=== PATIENT | female | born 1985 | race Caucasian/White ===

== ENCOUNTER 2023-10-17 06:01 | Emergency (ER) | payer BC, SELFPAY ==
[2023-10-17 06:03] VITALS: BP 123/84
[2023-10-17 07:12] LABS: Urine Albumin Negative (Neg - Trace); Urine Bilirubin Negative (Negative); Urine Character Clear (Clear); Urine Color Straw; Urine Glucose Negative (Negative); Urine Ketone Negative (Negative); Urine Leukocyte Negative (Negative); Urine Nitrite Negative (Negative); Urine Occult Blood Negative (Negative); Urine Specific Gravity 1.005 (<1.030); Urine Urobilinogen Negative (Neg - 1+)
[2023-10-17 07:15] LABS: % Basophils 0.4 % (0-2); % Eosinophils 0.5 % (0-6); % Immature Granulocytes 0.5 % (0-0.5); % Lymphocytes 19.9 % (20.5-51.1); % Monocytes 8.3 % (1.7-9.3); % Neutrophils 70.4 % (42.2-75.2); Absolute Eosinophils 0.1 10^3/uL (0-0.7); Absolute Immature Granulocytes 0.1 10^3/uL (0-0.05); Absolute Monocytes 0.8 10^3/uL (0.1-0.6); Absolute Neutrophils 7.2 10^3/uL (1.4-6.5); Hematocrit 34.4 % (37.0-47.0); Hemoglobin 12.1 g/dL (12.0-16.0); Mean Corp Hgb Conc. 35.2 g/dL (33.0-37.0); Mean Corpuscular Hgb 32.5 pg (27.0-31.0); Mean Corpuscular Volume 92.5 fL (81.0-99.0); Mean Platelet Volume 9.4 fL (7.4-10.4); Nucleated Red Blood Cells % 0 %; Platelet Count 370 10^3/uL (130-400); Red Blood Cell Count 3.72 10^6/uL (4.20-5.40); Red Cell Dist. Width 11.9 % (11.5-14.5); White Blood Cell Count 10.2 10^3/uL (4.8-10.8)
[2023-10-17 07:33] LABS: ALT (SGPT) 33 U/L (0-35); AST (SGOT) 31 U/L (14-36); Albumin 3.7 g/dl (3.5-5.0); Alkaline Phosphatase 62 U/L (38-126); Blood Urea Nitrogen 9 mg/dl (7-17); Calcium 8.9 mg/dl (8.4-10.2); Carbon Dioxide 23 mmol/L (22-30); Chloride 105 mmol/L (98-107); Glucose 88 mg/dl (70-99); Potassium 4.4 mmol/L (3.5-5.1); Sodium 131 mmol/L (135-145); Total Bilirubin 0.5 mg/dl (0.2-1.3); Total Protein 6.3 g/dl (6.3-8.2); eGFR > 60.00
--- NOTE | 2023-10-17 07:37 | ED.GENMED ---
History of Present Illness
General
Chief Complaint: Female Dairy Nutrition Specialist/Gu symptoms
Source: patient and spouse
Exam Limitations: none
Time Seen by Provider: 10/17/23 06:35
Nursing documentation reviewed up to this point in time: agreed with
Travel History
Have you had any contact with someone who has COVID-19?: No
Do you have any symptoms of coronavirus? Fever > 100 degrees, chills, cough, shortness of breath, sore throat, loss of taste or smell, muscle aches, or headache?: No
History of Present Illness
History of Present Illness:
38-year-old female with a past medical history of asthma and hypothyroidism who is G1, P0 currently 15 weeks (follows with Dr. Day for VINYL INSTALLER) presents to the emergency department for evaluation of urinary retention and abdominal
discomfort. Patient says that she was in her normal state of health until this morning�she says that she last urinated around 10 PM last night and has been unable to urinate at all since. She says she tried multiple times this morning and despite
having the urge to urinate she was not able to pass urine. She says she has had increasing lower abdominal distention and discomfort. Came to the emergency room for assessment. She has not noticed any recent dysuria or change in frequency. She
has not had a fever or chills. She denies any vaginal bleeding or leakage of fluids. She denies any flank pain. Denies any recent issues with constipation says she has a normal bowel movement every day. She denies similar issues in the past.
Her only medications are Symbicort and levothyroxine no other medications recently.
Review of Systems
Review of Systems
All Other Systems: ROS reviewed and negative except as documented in HPI and ROS
Constitutional: Denies fever or chills
Respiratory: Denies trouble breathing
Cardiac: Denies chest pain
ABD/GI: Reports abdominal pain (Lower abdominal pressure/distention); Denies nausea, vomiting or constipated
: Reports difficulty voiding; Denies dysuria, frequency or flank pain
Musculoskeletal: Denies neck pain or back pain
Neurological: Denies headache, weakness or numbness
Phy Exam
Physical Exam
Physical Exam:
General: Awake, alert; appears slightly uncomfortable
Head: Normocephalic, atraumatic
Eyes: Conjunctiva normal, sclera anicteric
Throat: Airway intact, handling secretions
Neck: Trachea midline, supple without meningismus
Lungs: Clear to auscultation bilaterally, no wheezing, rales, rhonchi
Heart: Regular rate and rhythm, no murmurs, gallops, or rubs
Abd: Soft, slightly distended lower abdomen with a palpable bladder (bedside ultrasound shows greater than 1 L of retained urine), tender over the bladder
Neuro: Cranial nerves grossly intact, speech fluid
Skin: no rash
Extremities: No edema in extremities, equal pulses in all extremities
Scores
Heart Failure Risk
Heart Failure Risk Score: Not Applicable
Heart Score for Chest Pain Patients
STEMI patient?: Not applicable
Withdrawal Assessment of Alcohol
Withdrawal Assessment Completed?: Not applicable
Course
Orders/Labs/Results
Orders:
Orders
10/17/23 06:35
Straight cath- Treatment ONCE
10/17/23 06:38
Complete Blood Count/With Diff Urgent
Comprehensive Metabolic Panel Urgent
Urinalysis Reflex To Culture Urgent
Date Specimen was Collected: 10/17/23
Time Specimen was Collected: 06:37
10/17/23 06:48
US Limited Urgent
Reason For Exam: urinary rentention, abd pain
Abnormal Lab Results
10/17/23
06:38
RBC 3.72 L 10^6/uL
(4.20-5.40)
Hct 34.4 L %
(37.0-47.0)
MCH 32.5 H pg
(27.0-31.0)
Abs Immat Gran (auto) 0.1 H 10^3/uL
(0-0.05)
Absolute Neuts (auto) 7.2 H 10^3/uL
(1.4-6.5)
Absolute Monos (auto) 0.8 H 10^3/uL
(0.1-0.6)
Lymphocytes % 19.9 L %
(20.5-51.1)
Sodium 131 L mmol/L
(135-145)
Creatinine 0.5 L mg/dL
(0.6-1.0)
10/17/23 06:38
10/17/23 06:38
Vital Signs
Initial and Last Documented VS:
Initial Vital Signs
Temp Pulse Resp BP Pulse Ox
36.8 C 87 18 123/84 97
10/17/23 06:03 10/17/23 06:03 10/17/23 06:03 10/17/23 06:03 10/17/23 06:03
Last Documented Vital Signs
Temp Pulse Resp BP Pulse Ox
36.8 C 75 16 117/65 97
10/17/23 06:03 10/17/23 07:40 10/17/23 07:40 10/17/23 07:40 10/17/23 06:03
MDM/Problems Addressed
Differential Diagnosis Includes:
Acute urinary retention�could be secondary to /uterine compression of urinary outflow, constipation also consideration in , will need to rule out infection as well
MDM/Problems Addressed:
38-year-old female presents for evaluation of low abdominal discomfort and acute urinary retention. Says she has been unable to urinate since 10 PM. Vital signs normal. Exam as above. Greater than 1 L of retained urine on bedside ultrasound.
Plan to check basic labs, will catheterize to decompress bladder. Discussed with [employer] INSTALLER recommended ultrasound as well. Reassess after the above.
After straight catheterization patient had output of 1.3 L of urine. Awaiting results of labs and imaging.
CBC shows no leukocytosis or other clinically significant abnormalities. CMP within acceptable range. Urinalysis negative for infection. Awaiting ultrasound.
Ultrasound reassuring. Per [facility] INSTALLER okay for discharge recommended urology follow-up. Discussed with urology�recommended education on how to self catheterize should she have urinary retention in the future. Suspect related no other clear
risk factors for retention. Recommended outpatient follow-up with urogynecology next week. Educated patient on self-catheterization. Patient feels very comfortable with this plan. All questions answered.
*Radiology
Radiology exam reviewed: radiology read reviewed
*Pulse Oximetry
Patient hypoxic: no
*Critical Care Note
Total Time (30-74mins, 75-104mins- exclusive of procedures): Not Applicable
Data Reviewed
Source: patient and spouse
Patient Management
Discussion with other providers: Sales And Marketing Coordinator (Discussed with [facility]INYL INSTALLER)
ED Attending Note
-
Portions of this chart may have been created with voice recognition software.� Occasional wrong word or��sound alike� substitutions may have occurred due to the inherent limitations of voice recognition software.
Discharge Plan
Departure
Patient Disposition: Home (Routine Discharge)
Date of Disposition: 10/17/23
Time of Disposition: 09:41
Patient with high blood pressure during this ER visit?: No
Discharge Problem:
Acute urinary retention
Instructions: Urinary Retention (DC)
Prescriptions:
No Action
albuterol sulfate 90 mcg/actuation Hfa Aerosol Inhaler
2 puff INHALATION Q6H PRN (Reason: sob)
budesonide-formoterol [Symbicort] 160-4.5 mcg/actuation Hfa Aerosol Inhaler
1 puff INHALATION DAILY
levothyroxine 50 mcg Capsule
50 mcg PO DAILY
aspirin 81 mg Capsule
81 mg PO DAILY
1 tab PO DAILY
Referrals:
Dony Day MD [Active] - Call in 1-3 days for appt
Julian Lawson MD [Active] - Call in 1-3 days for appt (Uro/ice cutter)
Activity Restrictions/Additional Instructions:
Thank you for visiting the Emergency Department at [facility].
1. Please schedule a follow up appointment as directed. Call first thing tomorrow morning to make an appointment.
2. If indicated, please take your medications as instructed and indicated on discharge paperwork.
3. If any of your symptoms do not improve, or persist, or become more severe within 6-12 hours, please return to the emergency department for further care.
4. Please return to the emergency department if you develop a headache, neck pain/stiffness, fever greater than 100.4F, chest pain, shortness of breath, persistent nausea, vomiting, slurred speech, difficulty walking, numbness/tingling, weakness,
signs of infection or any other symptoms that are worrisome to you.
Please call [phone] if you have any questions.
Interventions
Interventions:
*Risk Screen - Suicide Last Done: 10/17/23 06:03
*General Assessment Last Done: 10/17/23 06:03
*Neglect/Abuse Screening Last Done: 10/17/23 06:03
ED- Fall Risk Assessment Last Done: 10/17/23 06:43
*ED COVID-19 Vaccine History Last Done: 10/17/23 06:08
ED-Female Genitourinary Assessment Last Done: 10/17/23 06:43
[2023-10-17 07:38] VITALS: BMI 25.4
[2023-10-17 07:40] VITALS: BP 117/65
== END 2023-10-17 09:56 | disposition home or self-care (01) ==
LOC: EMR 06:01
PROVIDERS: EMERGENCY PHYSICIAN Emergency Medicine
DX: O26.892 Other specified pregnancy related conditions, second trimester (principal); R33.9 Retention of urine, unspecified; Z3A.15 15 weeks gestation of pregnancy
CPT/HCPCS: 99284; 51701; 76815; 80053; 81003; 85025

== ENCOUNTER → 2023-12-23 14:28 | Outpatient (REF) | payer BC, SELFPAY | LOC: PNTC 14:28 | PROVIDERS: ATTENDING PHYSICIAN Obstetrics & Gynecology | DX: O69.5XX0 Labor and delivery complicated by vascular lesion of cord, not applicable or unspecified (principal) | CPT/HCPCS: 76816 ==

== ENCOUNTER → 2024-01-14 08:57 | Outpatient (REF) | payer BC, SELFPAY ==
--- NOTE | 2024-01-14 08:20 | PN.DIAED06 ---
Meal Plan - Gestational
- Breakfast
Gestational Diabetes Meal Plan Name: 1800 calories
Breakfast - Total Carbohydrate (grams): 30
Breakfast - Starch Carbohydrate: 1
Breakfast - Fruit Carbohydrate: 0
Breakfast - Milk Carbohydrate: 1
Breakfast - Nonstarchy Vegetables: Yes
Breakfast - Meat/Protein: 1
Breakfast - Fat: 2
- Morning Snack
Morning Snack - Total Carbohydrate (grams): 30
Morning Snack - Starch Carbohydrate: 1
Morning Snack - Fruit Carbohydrate: 0
Morning Snack - Milk Carbohydrate: 1
Morning Snack - Nonstarchy Vegetables: Yes
Morning Snack - Meat/Protein: 0.5
Morning Snack - Fat: 0
- Lunch
Lunch - Total Carbohydrate (grams): 45
Lunch - Starch Carbohydrate: 2
Lunch - Fruit Carbohydrate: 1
Lunch - Milk Carbohydrate: 0
Lunch - Nonstarchy Vegetables: Yes
Lunch - Meat/Protein: 2
Lunch - Fat: 1
- Afternoon Snack
Afternoon Snack - Total Carbohydrate (grams): 30
Afternoon Snack - Starch Carbohydrate: 1
Afternoon Snack - Fruit Carbohydrate: 1
Afternoon Snack - Milk Carbohydrate: 0
Afternoon Snack - Nonstarchy Vegetables: Yes
Afternoon Snack - Meat/Protein: 1
Afternoon Snack - Fat: 0
- Dinner
Dinner - Total Carbohydrate (grams): 45
Dinner - Starch Carbohydrate: 2
Dinner - Fruit Carbohydrate: 0
Dinner - Milk Carbohydrate: 1
Dinner - Nonstarchy Vegetables: Yes
Dinner - Meat/Protein: 2
Dinner - Fat: 2
- Evening Snack
Evening Snack - Total Carbohydrate (grams): 30
Evening Snack - Starch Carbohydrate: 1
Evening Snack - Fruit Carbohydrate: 0
Evening Snack - Milk Carbohydrate: 1
Evening Snack - Nonstarchy Vegetables: Yes
Evening Snack - Meat/Protein: 1
Evening Snack - Fat: 1
--- NOTE | 2024-01-14 11:08 | PN.DIAED02 ---
Referral
DSME Class Series Code: GDM
Referred For: Gestational Diabetes Self-Management Training, Management of Diabetes During , Medical Nutrition Therapy, Self-Blood Glucose Monitoring
PHI Release Authorization Form Signed: Yes
Patient Problems:
Current Active Problems
Problem Status Onset
Gestational diabetes mellitus in , unspecified control
Demographic
(1) Gestational diabetes mellitus in , unspecified control
Status: Acute
Qualifiers:
Gestational diabetes mellitus control: diet-controlled Trimester: second trimester Qualified Code(s): O24.410 - Gestational diabetes mellitus in , diet controlled
Code(s): O24.419 - Gestational diabetes mellitus in , unspecified control
Patient's primary language-: Italian
Care Plan
- Education Needs
Patient Education Needs: Monitoring, Nutritional management, Preconception care//gestational diabetes management
Recommended Diabetes Training Program based on assessment: Gestational Diabetes Management
- Plan of Care
Plan of Care:
Met with Ms. Melendez today, , currently at 27 weeks of gestation, here today for glucose monitor and medical nutrition therapy instructions.
Explained glucose metabolism in body and what occurs during to cause increase blood sugar. Discussed importance of keeping BS well controlled to avoid complications to the baby during and after (macrosomia, hypoglycemia). Explained
to Gabriela that she is at increased risk of developing T2DM in the future. Provided glucose monitor, reviewed instructions and proper testing technique, testing sites and testing pattern. She is aware to test FBS and 2 hr pp each meal. Expected
results for FBS <95 mg/dl and 2 hr pp <120 mg/dl. Result today of 87 mg/dl 2hrs after breakfast.
Gabriela reports that she is vegetarian and eats mostly moderate to high carb food groups like legumes, pasta and grains and lots of non-starchy vegetables, especially at dinner time. She states that she thinks her high blood sugars are a results of
her starch diet because she does not eat meat or fish.
Explained high carbohydrate diet and macronutrients and the effect each has on blood sugar. Provided with 1800 balaji GDM meal plan. She was educated on how to read a nutritional fact label and look at total CHO in relation to serving size. No fruit or
fruit juice until noontime. Provided with handout on snacks as well as 'Choose Your Foods' booklet. A Log sheet was provided for her to record results, she will send her 4 day meal log with all her FBG and 2hr Post prandial glucose numbers to this
office for review. In addition, she will send all her glucose readings to [facility]alia at [facility] every Saturday. She was encouraged to keep a regular activity schedule and will reach out should she require insulin.
== END ==
LOC: DES 08:57
PROVIDERS: ATTENDING PHYSICIAN Obstetrics & Gynecology
DX: O24.419 Gestational diabetes mellitus in pregnancy, unspecified control (principal)
CPT/HCPCS: 99078

== ENCOUNTER → 2024-01-20 13:26 | Outpatient (REF) | payer BC, SELFPAY | LOC: PNTC 13:26 | PROVIDERS: ATTENDING PHYSICIAN Obstetrics & Gynecology | DX: O24.419 Gestational diabetes mellitus in pregnancy, unspecified control (principal) | CPT/HCPCS: 76816 ==

== ENCOUNTER 2024-02-03 11:27 | Observation (INO) | payer BC, SELFPAY ==
[2024-02-03 11:44] VITALS: BMI 25.4
== END 2024-02-03 12:47 | disposition home or self-care (01) ==
LOC: LDRP 11:27
PROVIDERS: ADMITTING PHYSICIAN Obstetrics & Gynecology
DX: O36.8130 Decreased fetal movements, third trimester, not applicable or unspecified (principal); Z3A.30 30 weeks gestation of pregnancy
CPT/HCPCS: 59025; G0378

== ENCOUNTER → 2024-02-19 11:23 | Outpatient (REF) | payer BC, SELFPAY | LOC: PNTC 11:23 | PROVIDERS: ATTENDING PHYSICIAN Obstetrics & Gynecology | DX: O09.519 Supervision of elderly primigravida, unspecified trimester (principal); O09.529 Supervision of elderly multigravida, unspecified trimester; O09.819 Supervision of pregnancy resulting from assisted reproductive technology, unspecified trimester | CPT/HCPCS: 59025; 76815 ==

== ENCOUNTER → 2024-02-27 10:53 | Outpatient (REF) | payer BC, SELFPAY | LOC: PNTC 10:53 | PROVIDERS: ATTENDING PHYSICIAN Obstetrics & Gynecology | DX: O09.521 Supervision of elderly multigravida, first trimester (principal); O09.819 Supervision of pregnancy resulting from assisted reproductive technology, unspecified trimester; O24.419 Gestational diabetes mellitus in pregnancy, unspecified control | CPT/HCPCS: 59025; 76816 ==

== ENCOUNTER → 2024-03-05 11:25 | Outpatient (REF) | payer BC, SELFPAY | LOC: PNTC 11:25 | PROVIDERS: ATTENDING PHYSICIAN Obstetrics & Gynecology | DX: O09.819 Supervision of pregnancy resulting from assisted reproductive technology, unspecified trimester (principal); O69.5XX0 Labor and delivery complicated by vascular lesion of cord, not applicable or unspecified; O24.419 Gestational diabetes mellitus in pregnancy, unspecified control; O09.519 Supervision of elderly primigravida, unspecified trimester | CPT/HCPCS: 59025; 76815 ==

== ENCOUNTER → 2024-03-12 10:53 | Outpatient (REF) | payer BC, SELFPAY | LOC: PNTC 10:53 | PROVIDERS: ATTENDING PHYSICIAN Obstetrics & Gynecology | DX: O09.529 Supervision of elderly multigravida, unspecified trimester (principal); O09.819 Supervision of pregnancy resulting from assisted reproductive technology, unspecified trimester; O69.81X0 Labor and delivery complicated by cord around neck, without compression, not applicable or unspecified; O24.419 Gestational diabetes mellitus in pregnancy, unspecified control | CPT/HCPCS: 59025; 76816 ==

== ENCOUNTER → 2024-03-19 10:55 | Outpatient (REF) | payer BC, SELFPAY | LOC: PNTC 10:55 | PROVIDERS: ATTENDING PHYSICIAN Obstetrics & Gynecology | DX: O99.210 Obesity complicating pregnancy, unspecified trimester (principal); O09.819 Supervision of pregnancy resulting from assisted reproductive technology, unspecified trimester; O69.5XX0 Labor and delivery complicated by vascular lesion of cord, not applicable or unspecified; O24.419 Gestational diabetes mellitus in pregnancy, unspecified control | CPT/HCPCS: 59025; 76815 ==

== ENCOUNTER → 2024-03-25 10:56 | Outpatient (REF) | payer BC, SELFPAY | LOC: PNTC 10:56 | PROVIDERS: ATTENDING PHYSICIAN Obstetrics & Gynecology | DX: O99.210 Obesity complicating pregnancy, unspecified trimester (principal); O09.819 Supervision of pregnancy resulting from assisted reproductive technology, unspecified trimester; O69.5XX0 Labor and delivery complicated by vascular lesion of cord, not applicable or unspecified; O24.419 Gestational diabetes mellitus in pregnancy, unspecified control | CPT/HCPCS: 59025 ==

== ENCOUNTER → 2024-04-02 10:51 | Outpatient (REF) | payer BC, SELFPAY | LOC: PNTC 10:51 | PROVIDERS: ATTENDING PHYSICIAN Obstetrics & Gynecology | DX: O09.529 Supervision of elderly multigravida, unspecified trimester (principal); O09.819 Supervision of pregnancy resulting from assisted reproductive technology, unspecified trimester; O24.419 Gestational diabetes mellitus in pregnancy, unspecified control; O69.5XX2 Labor and delivery complicated by vascular lesion of cord, fetus 2 | CPT/HCPCS: 59025; 76815 ==

== ENCOUNTER 2024-04-03 08:53 | Inpatient (IN) | payer BC, SELFPAY ==
[2024-04-03 09:11] VITALS: BP 132/90; BMI 25.8
[2024-04-03 09:45] LABS: Hematocrit 34.6 % (37.0-47.0); Hemoglobin 12.4 g/dL (12.0-16.0); Mean Corp Hgb Conc. 35.8 g/dL (33.0-37.0); Mean Corpuscular Hgb 33.3 pg (27.0-31.0); Mean Platelet Volume 10.1 fL (7.4-10.4); Platelet Count 266 10^3/uL (130-400); Red Blood Cell Count 3.72 10^6/uL (4.20-5.40); Red Cell Dist. Width 12.4 % (11.5-14.5); White Blood Cell Count 9.1 10^3/uL (4.8-10.8)
[2024-04-03] MEDS: LR 1000 IV (11:00)
[2024-04-03] MEDS: TYLENOL 1000 MG PO (12:15)
[2024-04-03] MEDS: BICITRA 30 ML PO (12:15)
[2024-04-03] MEDS: ANCEF 10 IV (12:15)
[2024-04-03] MEDS: PITOCIN 30 UNITS/NSS 500 ML IV (13:30)
[2024-04-03] MEDS: TORADOL 15 MG IV ×2 (14:45→20:22)
[2024-04-03] MEDS: SYMBICORT 160/4.5 MCG INHALER 1 PUFF INH (19:22)
[2024-04-04] MEDS: TORADOL 15 MG IV ×2 (01:59→09:18)
[2024-04-04] MEDS: PRENATAL PLUS PO (02:19)
[2024-04-04 05:05] LABS: Mean Corp Hgb Conc. 36.1 g/dL (33.0-37.0); Mean Corpuscular Hgb 33.9 pg (27.0-31.0); Mean Corpuscular Volume 93.9 fL (81.0-99.0); Mean Platelet Volume 10.2 fL (7.4-10.4); Platelet Count 229 10^3/uL (130-400); Red Blood Cell Count 2.45 10^6/uL (4.20-5.40); Red Cell Dist. Width 12.3 % (11.5-14.5); White Blood Cell Count 10.2 10^3/uL (4.8-10.8)
[2024-04-04 06:26] LABS: Hemoglobin 8.3 g/dL (12.0-16.0)
[2024-04-04] MEDS: SYNTHROID 50 MCG PO (06:30)
--- NOTE | 2024-04-04 08:13 | W.PN.ANS.POP ---
Anesthesia Post Operative
- Anesthesia Post Op Note
Vital Signs Stable-See Nursing Note: Yes
Airway Patent: Yes
Adequate Pain Control: Yes
Change in Mental Status: No
Current Postoperative Nausea & Vomiting: No
Anesthesia Complications: No
General Anesthetic Recall: No
Unplanned Admission: No
Post Op Hydration Adequate: Yes
[2024-04-04] MEDS: FEOSOL 325 MG PO (09:19)
[2024-04-04] MEDS: MYLICON 80 MG PO (09:19)
[2024-04-04] MEDS: SENOKOT-S 1 TABLET PO (09:19)
[2024-04-04] MEDS: SYMBICORT 160/4.5 MCG INHALER 1 PUFF INH ×2 (09:40→19:44)
[2024-04-04] MEDS: TORADOL IV (16:17)
[2024-04-04] MEDS: MOTRIN 600 MG PO (17:41)
[2024-04-04] MEDS: TYLENOL 650 MG PO (17:42)
[2024-04-04] MEDS: PRENATAL PLUS 1 TABLET PO (22:17)
[2024-04-05] MEDS: TYLENOL 650 MG PO ×4 (00:06→18:50)
[2024-04-05] MEDS: MOTRIN 600 MG PO ×4 (00:07→18:50)
[2024-04-05 04:56] LABS: Hematocrit 22.2 % (37.0-47.0); Hemoglobin 7.9 g/dL (12.0-16.0); Mean Corp Hgb Conc. 35.6 g/dL (33.0-37.0); Mean Corpuscular Hgb 33.5 pg (27.0-31.0); Mean Corpuscular Volume 94.1 fL (81.0-99.0); Mean Platelet Volume 9.7 fL (7.4-10.4); Platelet Count 230 10^3/uL (130-400); Red Blood Cell Count 2.36 10^6/uL (4.20-5.40); Red Cell Dist. Width 12.6 % (11.5-14.5); White Blood Cell Count 8.9 10^3/uL (4.8-10.8)
[2024-04-05] MEDS: SYNTHROID 50 MCG PO (06:09)
[2024-04-05] MEDS: FEOSOL 325 MG PO (08:00)
[2024-04-05] MEDS: SYMBICORT 160/4.5 MCG INHALER 1 PUFF INH ×2 (09:01→19:40)
[2024-04-05] MEDS: PRENATAL PLUS 1 TABLET PO (22:15)
[2024-04-06] MEDS: PERCOCET 5/325 1 TABLET PO (00:09)
[2024-04-06] MEDS: MOTRIN 600 MG PO ×2 (00:51→08:26)
[2024-04-06] MEDS: SYNTHROID 50 MCG PO (05:58)
[2024-04-06] MEDS: SYMBICORT 160/4.5 MCG INHALER 1 PUFF INH (07:43)
[2024-04-06] MEDS: FEOSOL 325 MG PO (08:00)
[2024-04-06] MEDS: TYLENOL 650 MG PO (08:25)
[2024-04-06] MEDS: SENOKOT-S 1 TABLET PO (08:27)
[2024-04-07 16:07] LABS: Syphilis/T. pallidum Ab Reflex Negative (Negative)
== END 2024-04-06 13:16 | disposition home or self-care (01) | DRG 788 ==
LOC: LDRP 08:53
PROVIDERS: Obstetrics & Gynecology; ADMITTING PHYSICIAN Obstetrics & Gynecology
PROC: 10D00Z1 Extraction of Products of Conception, Low, Open Approach (ICD-10-PCS; 2024-04-03)
DX: O32.1XX0 Maternal care for breech presentation, not applicable or unspecified (principal); O24.420 Gestational diabetes mellitus in childbirth, diet controlled; Z3A.39 39 weeks gestation of pregnancy; Z37.0 Single live birth; O69.81X0 Labor and delivery complicated by cord around neck, without compression, not applicable or unspecified; O99.284 Endocrine, nutritional and metabolic diseases complicating childbirth; E03.9 Hypothyroidism, unspecified
CPT/HCPCS: 88307; 85027; 86780; 86850; 86900; 86901; 94640